=== PATIENT | male | born 1980 | race Caucasian/White ===

== ENCOUNTER → 2021-04-06 09:24 | Outpatient (CLI) | payer OTHER, SELFPAY ==
--- NOTE | 2021-04-06 09:26 | DI.MRI.S_ITS ---
PROCEDURE: MR LUMBAR SPINE WO CON INDICATIONS: Radiculopathy, lumbar region TECHNIQUE: Noncontrast sagittal T1 spin echo and T2 fast echo, sagittal STIR, axial T1 and T2 fast spin echo through the lumbar spine. In cases with scoliosis, additional coronal T2 fast spin echo may be performed. COMPARISON: None. FINDINGS: Image quality: Excellent. Alignment and Curvature: There is normal bony alignment. Bone Marrow: Reactive endplate changes noted adjacent to the L5-S1 disc. No acute vertebral body compression fractures. Spinal Cord: Conus medullaris terminates at the L1 level. Visualized cord demonstrates normal signal and size. Paraspinous Soft Tissues: No paravertebral masses. T12-L1: Normal appearance. L1-L2: Normal appearance. L2-L3: Normal appearance. L3-L4: Loss of disc signal. Mild, diffuse disc bulge. Small central disc protrusion. Mild bilateral facet hypertrophy. Mild narrowing of the central canal. No neural foraminal narrowing. No neural compression. Fissure noted in the posterior annulus. L4-L5: Loss of disc signal. Mild, diffuse disc bulge. Small central disc protrusion. Mild bilateral facet hypertrophy. Mild narrowing of the central canal. Mild bilateral neural foraminal narrowing. No neural compression. Fissure noted in the posterior annulus. L5-S1: Loss of disc signal and slight loss of disc height. Mild, diffuse disc bulge. Broad-based left central/left foraminal disc protrusion. Mild bilateral facet hypertrophy. No central stenosis. Mild right and moderate to severe left neural foraminal narrowing with slight compression of the exiting left L5 nerve root. IMPRESSION: 1. Multilevel degenerative disc disease. 2. Multilevel facet arthropathy. 3. No severe central canal narrowing. 4. Moderate to severe left L5-S1 neural foraminal narrowing with slight compression of the exiting left L5 nerve root. Please correlate with clinical data. Dictated by: Viri Pate MD, PhD on 04/06/2021 at 15:04 Approved by: Viri Pate MD, PhD on 04/06/2021 at 15:12
== END ==
PROVIDERS: PCP Student in an Organized Health Care Education/Training Program; Referring Provider Student in an Organized Health Care Education/Training Program; Visit Provider Student in an Organized Health Care Education/Training Program
DX: M51.16 Intervertebral disc disorders with radiculopathy, lumbar region (principal); M51.17 Intervertebral disc disorders with radiculopathy, lumbosacral region; M47.26 Other spondylosis with radiculopathy, lumbar region; M47.27 Other spondylosis with radiculopathy, lumbosacral region; M48.07 Spinal stenosis, lumbosacral region
CPT/HCPCS: 72148

== ENCOUNTER → 2021-06-15 08:22 | Outpatient (CLI) | payer OTHER, SELFPAY ==
[2021-06-15 15:09] LABS: COVID19 -Nasal RAPID Negative (Negative)
== END ==
PROVIDERS: PCP Student in an Organized Health Care Education/Training Program; Visit Provider Physical Medicine & Rehabilitation
DX: Z20.822 Contact with and (suspected) exposure to COVID-19 (principal)
CPT/HCPCS: 87635; C9803

== ENCOUNTER 2021-06-16 08:10 | Outpatient (CLI) | payer OTHER, SELFPAY ==
[2021-06-16] VITALS (8 sets, daily range): BP systolic 134–152; BP diastolic 79–95; PULSE 71–90; RESP 8–18; TEMP 36; O2SAT 96–99
--- NOTE | 2021-06-16 08:14 | DI.RAD.S_ITS ---
PROCEDURE: PAIN L INTERLAMINAR/CAUDAL INJ INDICATIONS: SPONDYLOSIS COMPARISON: [facility], MR, MR LUMBAR SPINE WO CON, 04/06/2021, 10:08. FINDINGS: Fluoroscopic spot filming was performed to verify placement of a spinal needle at the L5-S1 level, as labeled on the films. Appropriate location of the needle tip was confirmed by injection of iodinated contrast. IMPRESSION: No significant intraprocedural abnormality. Dictated by: Colby Wagner M.D. on 06/16/2021 at 9:21 Approved by: Colby Wagner M.D. on 06/16/2021 at 9:21
[2021-06-16] MEDS: fentaNYL 100 MCG/2 ML INJ 50 MCG IV (09:30)
[2021-06-16] MEDS: MIDAZOLAM 5 MG/5 ML VIAL IV (09:30)
[2021-06-16] MEDS: IOPAMIDOL 15 ML VIAL 3 ML INJ (09:34)
[2021-06-16] MEDS: BUPIVACAINE 0.25% (PF) VIAL 2 ML INJ (09:34)
[2021-06-16] MEDS: BETAMETHASONE 30 MG/5 ML MDV 12 MG INJ (09:34)
[2021-06-16] MEDS: DEXAMETHASONE 10 MG/ML VIAL 20 MG INJ (09:35)
--- NOTE | 2021-06-16 09:48 | PM.PROC.IR.1 ---
Date/Time/Diagnoses Date of procedure: 06/16/21 Time of procedure: 09:49 Pre-procedure diagnosis: 1. HNP WITH RADICULAR FEATURES, 2. MULTILEVEL CENTRAL STENOSIS, Post-procedure diagnosis: same Procedure Notes Procedure: 1. FLUOROSCOPICALLY GUIDED CONTRAST CONTROLLED INTERLAMINAR EPIDURAL STEROID INJECTION - L5/S1 Indications: Inder is referred by Dr. Starr for treatment of HNP with L>R LE symptoms. Physician: Jon Bustamante Total Fluoroscopy time (seconds): 8 Total sedation minutes: 10 Complications: none Procedure in detail & Post-procedure care: FINDINGS Multilevel Central Spinal Stenosis with Nerve Root Compression DESCRIPTION OF PROCEDURE Fluoroscopically guided, contrast-controlled L5/S1 translaminar epidural steroid injection. Following review of allergy and review of potential side effects and complications, including, but not necessarily limited to, infection, allergic reaction, local tissue breakdown, temporary as well as permanent nerve injury, paralysis, stroke and possible , the patient indicated that the patient understood and agreed to proceed. An informed consent document was signed by the patient, witnessed by a nurse, and placed in the patient's chart. Additionally, other treatment options including modalities, medications, and physical therapy were reviewed with the patient. After review of previous anaesthesic history and IV conscious sedation the patient was deemed safe to proceed with today?s procedure with IV conscious sedation as ASA class II designation. Safety time-out was performed to confirm patient ID, procedure to be performed and site of procedure. IV sedation was accomplished with a combination of 2mg of Versed and 50mcg of Fentanyl administered by the RN after DO order, titrated to patient comfort during the course of the procedure while the patient remained responsive to all verbal commands. In the prone position, following sterile prep and drape of the lumbar region, the L5/S1 translaminar space was identified fluoroscopically. The skin was anesthetized via a 25-gauge, 1.5-inch needle with 1% lidocaine solution. At this point, a 22-gauge short bevel spinal needle was atraumatically introduced and advanced under fluoroscopic guidance into the region of the L5/S1 translaminar space. Depth was confirmed on lateral view. Radiological data, including multiple fluoroscopic views of the lumbar spine, reveal a spinal needle at the L5/S1 translaminar space. Lateral views then show placement of the needle in the epidural space. Subsequent views show contrast material flowing superiorly and inferiorly in the epidural space. No vascular or intrathecal uptake is observed. At this point, using loss of resistance technique with saline and air, the epidural space was entered. This was confirmed following negative aspiration with injection of approximately 1.5cc of Isovue 200, showing excellent epidural flow without vascular or intrathecal uptake. At this point, 1cc of 1% lidocaine solution combined with 3cc or 20mg of dexamethasone and 12mg of betamethasone was injected without incident. The patent tolerated the procedure without signs of symptoms of complications prior to transfer to the recovery area for further monitoring. The patient was then transferred to the recovery area where they were observed for an appropriate period of time after the injection. The patient reported a VAS score of 6 prior to the procedure and a post-procedure VAS of 0. POST OP INSTRUCTIONS The patient was provided a Pain Log to continue to record their response to the target-specific procedure prior to follow-up visit with their referring physician. Additionally, specific post-injection care instructions and a contact number to our office were provided if concerns arise regarding possible complications associated with the procedure are suspected.
== END 2021-06-16 10:05 | disposition home or self-care (01) ==
LOC: RAD 08:13
PROVIDERS: PCP Student in an Organized Health Care Education/Training Program; Referring Provider Physical Medicine & Rehabilitation; Visit Provider Physical Medicine & Rehabilitation
DX: M51.17 Intervertebral disc disorders with radiculopathy, lumbosacral region (principal); M48.07 Spinal stenosis, lumbosacral region
CPT/HCPCS: 62323; 99152

== ENCOUNTER → 2021-10-26 13:37 | Outpatient (CLI) | payer OTHER, SELFPAY ==
[2021-10-26 15:02] LABS: COVID19 -Nasal RAPID Negative (Negative)
== END ==
PROVIDERS: PCP Student in an Organized Health Care Education/Training Program; Visit Provider Physical Medicine & Rehabilitation
DX: Z20.822 Contact with and (suspected) exposure to COVID-19 (principal)
CPT/HCPCS: 87635; C9803

== ENCOUNTER 2021-10-27 14:50 | Outpatient (CLI) | payer OTHER, SELFPAY ==
[2021-10-27] VITALS (8 sets, daily range): BP systolic 127–147; BP diastolic 66–90; PULSE 69–79; RESP 12–20; TEMP 36.3; O2SAT 95–100
--- NOTE | 2021-10-27 14:51 | DI.RAD.S_ITS ---
PROCEDURE: PAIN L/S FACET INJ/BLK 1ST CARLY COMPARISON: Merged With [facility], XA, PAIN L INTERLAMINAR/CAUDAL INJ, 06/16/2021, 9:35. INDICATIONS: SPONDYLOSIS FINDINGS: Fluoroscopic spot filming was performed to verify placement of spinal needles on both sides at the L3-L4 and L4-L5 levels, as labeled on the films. Appropriate location of the needle tips was confirmed by injection of iodinated contrast. IMPRESSION: Intraprocedural examination within normal limits. Dictated by: Colby Wagner M.D. on 10/27/2021 at 15:18 Approved by: Colby Wagner M.D. on 10/27/2021 at 15:18
[2021-10-27] MEDS: fentaNYL 100 MCG/2 ML INJ 50 MCG IV (15:25)
[2021-10-27] MEDS: LIDOCAINE 1% 20 ML (15:30)
[2021-10-27] MEDS: BUPIVACAINE 0.5% (PF) VIAL 5 ML INJ (15:30)
[2021-10-27] MEDS: IOPAMIDOL 15 ML VIAL 3 ML INJ (15:31)
[2021-10-27] MEDS: BETAMETHASONE 30 MG/5 ML MDV 12 MG INJ (15:31)
[2021-10-27] MEDS: MIDAZOLAM 5 MG/5 ML VIAL IV (15:32)
--- NOTE | 2021-10-27 15:44 | P.PCN_ITS ---
Date/Time/Diagnoses Date of procedure: 10/27/21 Time of procedure: 15:44 Pre-procedure diagnosis: 1. FACET ARTHROPATHY 2. AXIAL LBP 3. MULTILEVEL DDD This procedure is found to meet the Governor's proclamation 20-24.2 regarding non urgent procedures. This patient meets multiple criteria for the procedure including continuing or worsening of significant or severe pain, combined with further deterioration of the patient's condition or overall health as well as delay in treatment would be expected to result in less positive ultimate medical outcome. Therefore the decision to perform the procedure in an outpatient hospital setting is found to be in accordance with guidelines of the proclama tion. Post-procedure diagnosis: same Procedure Notes Procedure: 1. FLUORSCOPICALLY GUIDED CONTRAST CONTROLLED FACET JOINT INJECTIONS BILATERAL L3/4, L4/5 Indications: Inder is referred by Dr. Starr for treatment of Axial LBP Physician: Jon Bustamante Total Fluoroscopy time (seconds): 11 Total sedation minutes: 14 Complications: none Procedure in detail & Post-procedure care: FINDINGS Multilevel Facet Arthropathy with Clinically significant axial LBP DESCRIPTION OF PROCEDURE Fluoroscopically guided, contrast-controlled bilateral L3/4, L4/5 facet joint injections. Following review of allergy and review of potential side effects and complications, including, but not necessarily limited to, infection, allergic reaction, local tissue breakdown, stroke, temporary or permanent nerve injury, paralysis, and possible , the patient indicated that the patient understood and agreed to proceed. An informed consent document was signed by the patient, witnessed by a nurse, and placed in the patient's chart. Additionally, other treatment options including medications, modalities, and physical therapy were reviewed with the patient. After review of previous anaesthesic history and IV conscious sedation the patient was deemed safe to proceed with today's procedure with IV conscious sedation as ASA class II designation. Safety time-out was performed to confirm patient ID, procedure to be performed and site of procedure. IV sedation was accomplished with a combination of 3mg of Versed and 50mcg of Fentanyl was administered by the RN after DO order, titrated to patient comfort during the course of the procedure while the patient remained responsive to all verbal commands. In the prone position, following sterile prep and drape of the lumbar region, the posterior aspect of the L3/4, L4/5 facet joints were identified fluoroscopically. The skin was anesthetized via a 25-gauge 1.5-inch needle with 1% lidocaine solution into the corresponding facet joints. At this point, a 22- gauge 3.5-inch spinal needle was atraumatically introduced and advanced under fl uoroscopic guidance into the corresponding facet joints. Following negative aspiration, injections of approximately 0.2cc of Isovue 200 confirmed interarticular placement without vascular uptake. The identical procedure was then performed at the L3/4, L4/5 facet joints on the left. Radiological data, including multiple fluoroscopic views of the lumbosacral spine, reveal a spinal needle at the L3/4, L4/5 facet joints bilaterally. Subsequent views show flow of contrast material both superiorly and inferiorly within the joint space without vascular or intrathecal uptake. At this point, a total of 0.5cc including a mixture of 0.25cc Marcaine and 0.25cc betamethasone was injected without complication into each of the corresponding facet joints. The patient tolerated the procedure well without signs or symptoms of complications prior to transfer to the recovery area continued monitoring without incident. The patient was then transferred to the recovery area where they were observed for an appropriate period of time after the injection. The patient reported a VAS score of 7 prior to the procedure and a post-procedure VAS of 0. POST OP INSTRUCTIONS The patient was provided a Pain Log to continue to record their response to the target-specific procedure prior to follow-up visit with their referring physician. Additionally, specific post-injection care instructions and a contact number to our office were provided if concerns arise regarding possible complications associated with the procedure are suspected.
== END 2021-10-27 16:06 | disposition home or self-care (01) ==
PROVIDERS: PCP Student in an Organized Health Care Education/Training Program; Referring Provider Physical Medicine & Rehabilitation; Visit Provider Physical Medicine & Rehabilitation
DX: M47.816 Spondylosis without myelopathy or radiculopathy, lumbar region (principal); M51.36 Other intervertebral disc degeneration, lumbar region
CPT/HCPCS: 64493; 64494; 99152; J0702; J2250; J3010

== ENCOUNTER 2021-11-15 13:45 | Emergency (ER) | payer OTHER, SELFPAY ==
[2021-11-15 13:58] VITALS: BP 149/78; PULSE 69; RESP 18; TEMP 36.7; O2SAT 97; BMI 29.5
--- NOTE | 2021-11-15 14:05 | DI.RAD.S_ITS ---
P a ROCEDURE: XR RIBS RT MIN 3V W CXR 1V INDICATIONS: right side/rib pain, no known injury TECHNIQUE: 2 views of the right ribs were acquired, along with a single view chest. COMPARISON: None. FINDINGS: Surgical changes and devices: Postsurgical changes from prior cervical disc replacement surgery of the lower cervical spine. Bones and chest wall: No acute rib fractures or dislocations. Of note, images are slightly degraded by motion artifact. No suspicious bony lesions. Overlying soft tissues appear unremarkable. Lungs and pleura: No pleural effusions or pneumothorax. Lungs appear clear. Mediastinum: Mediastinal contours appear normal. Heart size is normal. IMPRESSION: Chest without acute cardiopulmonary abnormalities or focal airspace disease. No acute rib fractures identified. Dictated by: Aleksandr Xiao M.D. on 11/15/2021 at 13:30 Approved by: Aleksandr Xiao M.D. on 11/15/2021 at 13:31
[2021-11-15 14:46] LABS: Add Manual Diff / Slide Review NO; Basophils Absolute Auto 0 /uL (0-100); Basophils Percent Auto 0.4 % (0-2); Eosinophils Absolute Auto 100 /uL (0-450); Eosinophils Percent Auto 0.7 % (2-4); Hematocrit 43.5 % (41-53); Hemoglobin 14.8 g/dL (13.5-17.5); Lymphocytes Absolute Auto 2400 /uL (1100-4500); Lymphocytes Percent Auto 28.5 % (25-40); Mean Corpuscular HGB Conc 34.1 % (30-36); Mean Corpuscular Volume 87.9 fL (80-100); Monocytes Absolute Auto 800 /uL (0-900); Monocytes Percent Auto 9.4 % (3-14); Neutrophils Absolute Auto 5200 /uL (1500-7000); Platelet Count 250 X10^3/uL (150-400); Red Blood Cell Count 4.94 X10^6/uL (4.5-5.9); Red Cell Distribution Width 12.8 % (11.6-14.8); White Blood Cell Count 8.6 X10^3/uL (4.5-11.0)
[2021-11-15 15:03] LABS: Alanine Aminotransferase 46 IU/L (<50); Albumin Globulin Ratio 1.5 (1.0-2.8); Alkaline Phosphatase 56 U/L (38-126); Aspartate Aminotransferase 43 IU/L (17-59); BUN Creatinine Ratio 14.3 (6-22); Bilirubin Total 0.7 mg/dL (0.2-1.3); Blood Urea Nitrogen 15 mg/dL (9-20); Calcium 9.7 mg/dL (8.4-10.2); Carbon Dioxide 26 mmol/L (22-32); Chloride 103 mmol/L (98-107); Estimated Glomerular Filt Rate > 60.0 mL/min (>60); Globulin 3.3 g/dL (1.7-4.1); Glucose 103 mg/dL (70-100); HEMOLYSIS < 15 (0-50); Lipase 105 U/L (23-300); Potassium 3.9 mmol/L (3.4-5.1); Sodium 137 mmol/L (137-145); Total Protein 8.3 g/dL (6.3-8.2)
--- NOTE | 2021-11-15 15:12 | DI.US.S_ITS ---
PROCEDURE: US ABDOMEN LIMITED INDICATIONS: RUQ PAIN TECHNIQUE: Real-time scanning was performed of the abdominal and retroperitoneal organs, with image documentation. COMPARISON: None. FINDINGS: Liver: The liver demonstrates diffusely increased echotexture without focal abnormalities consistent with chronic hepatocellular disease/hepatic steatosis. Gallbladder: Gallbladder is normal in sonographic appearance without gallstones, gallbladder wall thickening, pericholecystic fluid, or abnormal sonographic Ramires's. Biliary ducts: Intrahepatic bile ducts are non-dilated. Extrahepatic bile duct caliber measures 4.5 mm. Normal is 6-7 mm or less in diameter, or 10 mm or less post-cholecystectomy. Pancreas: Visualized portions of the pancreas are sonographically normal. Miscellaneous: No free abdominal fluid. IMPRESSION: The liver demonstrates diffusely increased echotexture without focal abnormalities consistent with chronic hepatocellular disease/hepatic steatosis. Consider correlation with LFTs. No evidence for cholelithiasis or acute cholecystitis. Dictated by: Aleksandr Xiao M.D. on 11/15/2021 at 15:59 Approved by: Aleksandr Xiao M.D. on 11/15/2021 at 16:01
--- NOTE | 2021-11-15 15:40 | ED.CHESTPAIN ---
HPI - Chest Pain <Bret Allen PA-C - Last Filed: 11/15/21 19:39> General Chief Complaint: Chest Pain Stated Complaint: rt pain under ribs Time Seen by Provider: 11/15/21 14:24 Mode of arrival: Ambulatory History of Present Illness HPI narrative: Patient is a 41-year-old male presenting to the emergency department today for right-sided pain below the ribs. Patient states that he is experience this pain intermittently over the past week and a half, noting that he has not experienced any trauma or injury to the area. He states that he began taking Celebrex approximately a month ago but denies any new medications or changes in medications. He states he is not experience any other associated symptoms and states that his pain can range anywhere from a 3/10 in intensity to a 9/10 in intensity. He states that the pain lasts for a few seconds and can go quite some time without experiencing additional episodes of pain. He denies fever, chills, chest pain, cough, shortness of breath, nausea, vomiting, diarrhea, dysuria, hematuria, diaphoresis, chest pain radiating to the back, or any other concerning symptoms. No further concerns were voiced at this time. Related Data Home Medications Medication Instructions Recorded Confirmed ibuprofen 200 mg tablet (Advil) 200 mg PO Q6H PRN 09/30/21 09/30/21 lisinopril 40 mg tablet 40 mg PO DAILY 09/30/21 09/30/21 Previous Rx's Medication Instructions Recorded celecoxib 200 mg capsule (Celebrex) 200 mg PO DAILY #30 cap 09/30/21 diazepam 10 mg tablet (Valium) 10 mg PO ONCE #10 tab MDD 3 tabs 10/27/21 Allergies Allergy/AdvReac Type Severity Reaction Status Date / Time No Known Drug Allergies Allergy Verified 09/30/21 11:37 Review of Systems <Bret Allen PA-C - Last Filed: 11/15/21 19:39> Constitutional Constitutional: Denies chills, Denies fatigue, Denies fever(s), Denies frequent falls, Denies lethargy and Denies weakness Eyes Eyes: Denies loss of vision ENT Ears, Nose, Mouth, and Throat: Denies dizziness and Denies neck pain Cardiovascular Cardiovascular: Denies chest pain, Denies irregular heart rhythm, Denies lightheadedness, Denies palpitations, Denies dyspnea, Denies dyspnea on exertion and Denies orthopnea Respiratory Respiratory: Denies cough, Denies dyspnea, Denies dyspnea on exertion and Denies wheezing Gastrointestinal Gastrointestinal: Denies abdominal pain, Denies change in bowel habits, Denies diarrhea, Denies nausea and Denies vomiting Genitourinary Genitourinary: Denies hematuria, Denies flank pain, Denies urinary incontinence and Denies urinary urgency Musculoskeletal Musculoskeletal: Denies back pain, Denies muscle weakness, Denies neck pain, Denies numbness, Denies tingling and Reports other (Right-sided pain below the ribs) Integumentary/Breasts Skin/Breast: Denies pruritus, Denies erythema, Denies rash and Denies wounds Neurologic Neurologic: Denies behavioral changes, Denies confusion, Denies dizziness, Denies frequent falls, Denies loss of vision, Denies numbness, Denies tingling and Denies weakness Psychiatric Psychiatric: Denies behavioral changes and Denies confusion Endocrine Endocrine: Denies fatigue and Denies palpitations Allergic/Immunologic Allergic/Immunologic: Denies wheezing Patient History <Bret Allen PA-C - Last Filed: 11/15/21 19:39> Medical History Facet arthropathy, lumbar Herniated nucleus pulposus, L5-S1, left Social History Smoking Status: Never smoker Smoking Status: Never smoker alcohol intake frequency: a few times a month Substance Use Type: does not use Exam <Bret Allen PA-C - Last Filed: 11/15/21 19:39> Narrative Exam Narrative: GENERAL: 41 year old patient appears stated age. Well-developed patient, in no acute distress. HEAD: Atraumatic. Normocephalic. EYES: Pupils equal round and reactive. Extraocular motions intact. No scleral icterus. No injection or drainage. ENT: Nose without bleeding, purulent drainage. Throat without erythema, tonsillar hypertrophy or exudate. Airway patent. NECK: Trachea midline. Non tender CARDIOVASCULAR: Regular rate and rhythm without murmurs, gallops, or rubs. RESPIRATORY: Clear to auscultation. Breath sounds equal bilaterally. No wheezes, rales, or rhonchi. GASTROINTESTINAL: Abdomen soft, non-tender, nondistended. No masses appreciated. Positive Ramires sign. EXTREMITIES: No edema or joint tenderness. No significant tenderness appreciated throughout the ribcage on the right side. No deformity or crepitance appreciated over the ribcage. No significant overlying ecchymosis BACK: Nontender without deformity or crepitance. No flank tenderness. NEURO: AOx3. SKIN: No rash or erythema of visible areas Initial Vital Signs Initial Vital Signs: Vital Signs Temperature 98.1 F 11/15/21 13:58 Pulse Rate 69 11/15/21 13:58 Respiratory Rate 18 11/15/21 13:58 Blood Pressure 149/78 H 11/15/21 13:58 Pulse Oximetry 97 11/15/21 13:58 <Shahana Ortiz DO - Last Filed: 11/16/21 07:38> Initial Vital Signs Initial Vital Signs: Vital Signs Temperature 98.1 F 11/15/21 13:58 Pulse Rate 69 11/15/21 13:58 Respiratory Rate 18 11/15/21 13:58 Blood Pressure 149/78 H 11/15/21 13:58 Pulse Oximetry 97 11/15/21 13:58 Course <Bret Allen PA-C - Last Filed: 11/15/21 19:39> Course Course Narrative: CBC, CMP, lipase, troponin, and abdominal ultrasound ordered. Ultrasound of the right upper quadrant ordered due to positive Ramires sign on exam. Orders Ordered: ED Orders 11/15/21 14:05 XR ribs RT min 3V w CXR1V Stat 11/15/21 14:32 Complete Blood Count AUTO DIFF Stat Comprehensive Metabolic Panel Stat Lipase Stat Troponin & CK Cardiac Panel Stat 11/15/21 15:12 US abdomen limited Stat Vital Signs Vital signs: Vital Signs - 8 hr 11/15/21 13:58 11/15/21 17:46 Temperature 98.1 F 97.7 F Pulse Rate 69 63 Respiratory Rate 18 14 Blood Pressure 149/78 H 126/64 Pulse Oximetry 97 97 <Shahana Ortiz DO - Last Filed: 11/16/21 07:38> Orders Ordered: ED Orders 11/15/21 14:05 XR ribs RT min 3V w CXR1V Stat 11/15/21 14:32 Complete Blood Count AUTO DIFF Stat Comprehensive Metabolic Panel Stat Lipase Stat Troponin & CK Cardiac Panel Stat 11/15/21 15:12 US abdomen limited Stat Vital Signs Vital signs: Vital Signs - 8 hr 11/15/21 13:58 11/15/21 17:46 Temperature 98.1 F 97.7 F Pulse Rate 69 63 Respiratory Rate 18 14 Blood Pressure 149/78 H 126/64 Pulse Oximetry 97 97 MDM - Chest Pain <Bret Allen PA-C - Last Filed: 11/15/21 19:39> Lab Data Result diagrams: 11/15/21 14:32 11/15/21 14:32 Labs: Lab Results 11/15/21 11/15/21 11/15/21 Range/Units 14:32 14:32 14:32 WBC 8.6 (4.5-11.0) X10^3/uL RBC 4.94 (4.5-5.9) X10^6/uL Hgb 14.8 (13.5-17.5) g/dL Hct 43.5 (41-53) % MCV 87.9 (80-100) fL MCH 30.0 (26-34) PG MCHC 34.1 (30-36) % RDW 12.8 (11.6-14.8) % Plt Count 250 (150-400) X10^3/uL Neut % (Auto) 61.0 (50-75) % Lymph % (Auto) 28.5 (25-40) % Forest % (Auto) 9.4 (3-14) % Eos % (Auto) 0.7 L (2-4) % Baso % (Auto) 0.4 (0-2) % Neut # (Auto) 5200 (3485-8617) /uL Lymph # (Auto) 2400 (8699-3532) /uL Forest # (Auto) 800 (0-900) /uL Eos # (Auto) 100 (0-450) /uL Baso # (Auto) 0 (0-100) /uL Sodium 137 (137-145) mmol/L Potassium 3.9 (3.4-5.1) mmol/L Chloride 103 (98-107) mmol/L Carbon Dioxide 26 (22-32) mmol/L BUN 15 (9-20) mg/dL Creatinine 1.05 (0.66-1.25) mg/dL Estimated GFR > 60.0 (>60) mL/min BUN/Creatinine Ratio 14.3 (6-22) Glucose 103 H (70-100) mg/dL Calcium 9.7 (8.4-10.2) mg/dL Total Bilirubin 0.7 (0.2-1.3) mg/dL AST 43 (17-59) IU/L ALT 46 (<50) IU/L Alkaline Phosphatase 56 (38-126) U/L Total Creatine Kinase (55-170) U/L CK-MB (CK-2) (<2.37) ng/mL CK-MB (CK-2) Rel Index (1.5-5.0) % Troponin I (0.01-0.034) ng/mL Total Protein 8.3 H (6.3-8.2) g/dL Albumin 5.0 (3.5-5.0) g/dL Globulin 3.3 (1.7-4.1) g/dL Albumin/Globulin Ratio 1.5 (1.0-2.8) Lipase 105 (23-300) U/L 11/15/21 Range/Units 14:32 WBC (4.5-11.0) X10^3/uL RBC (4.5-5.9) X10^6/uL Hgb (13.5-17.5) g/dL Hct (41-53) % MCV (80-100) fL MCH (26-34) PG MCHC (30-36) % RDW (11.6-14.8) % Plt Count (150-400) X10^3/uL Neut % (Auto) (50-75) % Lymph % (Auto) (25-40) % Forest % (Auto) (3-14) % Eos % (Auto) (2-4) % Baso % (Auto) (0-2) % Neut # (Auto) (8406-1919) /uL Lymph # (Auto) (0171-3741) /uL Forest # (Auto) (0-900) /uL Eos # (Auto) (0-450) /uL Baso # (Auto) (0-100) /uL Sodium (137-145) mmol/L Potassium (3.4-5.1) mmol/L Chloride (98-107) mmol/L Carbon Dioxide (22-32) mmol/L BUN (9-20) mg/dL Creatinine (0.66-1.25) mg/dL Estimated GFR (>60) mL/min BUN/Creatinine Ratio (6-22) Glucose (70-100) mg/dL Calcium (8.4-10.2) mg/dL Total Bilirubin (0.2-1.3) mg/dL AST (17-59) IU/L ALT (<50) IU/L Alkaline Phosphatase (38-126) U/L Total Creatine Kinase 372 H (55-170) U/L CK-MB (CK-2) 2.55 H (<2.37) ng/mL CK-MB (CK-2) Rel Index 0.7 L (1.5-5.0) % Troponin I < 0.012 (0.01-0.034) ng/mL Total Protein (6.3-8.2) g/dL Albumin (3.5-5.0) g/dL Globulin (1.7-4.1) g/dL Albumin/Globulin Ratio (1.0-2.8) Lipase (23-300) U/L Imaging Data X-ray Ribs: Radiologist's Impression: P a ROCEDURE:? XR RIBS RT MIN 3V W CXR 1V ? INDICATIONS:? right side/rib pain, no known injury ? TECHNIQUE:? 2 views of the right ribs were acquired, along with a single view chest.? ? COMPARISON:? None. ? FINDINGS:? ? Surgical changes and devices:? Postsurgical changes from prior cervical disc replacement surgery of the lower cervical spine.? ? Bones and chest wall:? No acute rib fractures or dislocations.? Of note, images are slightly degraded by motion artifact.? No suspicious bony lesions.? Overlying soft tissues appear unremarkable.? ? Lungs and pleura:? No pleural effusions or pneumothorax.? Lungs appear clear.? ? Mediastinum:? Mediastinal contours appear normal.? Heart size is normal.? ? IMPRESSION:? Chest without acute cardiopulmonary abnormalities or focal airspace disease. ?No acute rib fractures identified. ? ? Dictated by: Aleksandr Xiao M.D. on 11/15/2021 at 13:30 ? ? Approved by: Aleksandr Xiao M.D. on 11/15/2021 at 13:31? US - abdomen: Radiologist's Impression: PROCEDURE:? US ABDOMEN LIMITED ? INDICATIONS:? RUQ PAIN ? TECHNIQUE:? Real-time scanning was performed of the abdominal and retroperitoneal organs, with image documentation.? ? COMPARISON:? None. ? FINDINGS:? ? Liver:? The liver demonstrates diffusely increased echotexture without focal abnormalities consistent with chronic hepatocellular disease/hepatic steatosis. Gallbladder:? Gallbladder is normal in sonographic appearance without gallstones, gallbladder wall thickening, pericholecystic fluid, or abnormal sonographic Ramires's.? Biliary ducts:? Intrahepatic bile ducts are non-dilated.? Extrahepatic bile duct caliber measures 4.5 mm.? Normal is 6-7 mm or less in diameter, or 10 mm or less post-cholecystectomy.? Pancreas:? Visualized portions of the pancreas are sonographically normal.? Miscellaneous:? No free abdominal fluid.? ? IMPRESSION:? The liver demonstrates diffusely increased echotexture without focal abnormalities consistent with chronic hepatocellular disease/hepatic steatosis. Consider correlation with LFTs. No evidence for cholelithiasis or acute cholecystitis. ? ? Dictated by: Aleksandr Xiao M.D. on 11/15/2021 at 15:59 ? ? Approved by: Aleksandr Xiao M.D. on 11/15/2021 at 16:01 ? MDM Narrative Medical decision making narrative: Differential diagnosis to consider but not limited to cholecystitis versus coli lithiasis versus choledocholithiasis versus acute cholangitis versus hepatitis versus rib fracture versus rib dislocation. Overall, physical examination, x-ray imaging, and ultrasound imaging obtained in the emergency department today were reassuring. No acute abnormality was identified on x-ray or ultrasound that would require emergent intervention. Additionally, lab studies obtained in the emergency department today returned overall reassuring and within normal limits. Discussed these results with patient and informed him that it is important to follow-up with his primary care provider within the next 2-3 days for further evaluation. Patient expresses understanding and agrees to plan. He states at this time he is comfortable being discharged home and is stable for discharge. Strict return precautions were discussed with the patient prior to discharge. Patient denied chest pain, nausea, diaphoresis, jaw pain, pain or numbness in the upper extremities, or any other concerning symptoms prior to coming to the emergency department or throughout his stay in the emergency department. <Shahana Ortiz, - Last Filed: 11/16/21 07:38> Lab Data Labs: Lab Results 11/15/21 11/15/21 11/15/21 Range/Units 14:32 14:32 14:32 WBC 8.6 (4.5-11.0) X10^3/uL RBC 4.94 (4.5-5.9) X10^6/uL Hgb 14.8 (13.5-17.5) g/dL Hct 43.5 (41-53) % MCV 87.9 (80-100) fL MCH 30.0 (26-34) PG MCHC 34.1 (30-36) % RDW 12.8 (11.6-14.8) % Plt Count 250 (150-400) X10^3/uL Neut % (Auto) 61.0 (50-75) % Lymph % (Auto) 28.5 (25-40) % Forest % (Auto) 9.4 (3-14) % Eos % (Auto) 0.7 L (2-4) % Baso % (Auto) 0.4 (0-2) % Neut # (Auto) 5200 (2499-2299) /uL Lymph # (Auto) 2400 (8022-1924) /uL Forest # (Auto) 800 (0-900) /uL Eos # (Auto) 100 (0-450) /uL Baso # (Auto) 0 (0-100) /uL Sodium 137 (137-145) mmol/L Potassium 3.9 (3.4-5.1) mmol/L Chloride 103 (98-107) mmol/L Carbon Dioxide 26 (22-32) mmol/L BUN 15 (9-20) mg/dL Creatinine 1.05 (0.66-1.25) mg/dL Estimated GFR > 60.0 (>60) mL/min BUN/Creatinine Ratio 14.3 (6-22) Glucose 103 H (70-100) mg/dL Calcium 9.7 (8.4-10.2) mg/dL Total Bilirubin 0.7 (0.2-1.3) mg/dL AST 43 (17-59) IU/L ALT 46 (<50) IU/L Alkaline Phosphatase 56 (38-126) U/L Total Creatine Kinase (55-170) U/L CK-MB (CK-2) (<2.37) ng/mL CK-MB (CK-2) Rel Index (1.5-5.0) % Troponin I (0.01-0.034) ng/mL Total Protein 8.3 H (6.3-8.2) g/dL Albumin 5.0 (3.5-5.0) g/dL Globulin 3.3 (1.7-4.1) g/dL Albumin/Globulin Ratio 1.5 (1.0-2.8) Lipase 105 (23-300) U/L 11/15/21 Range/Units 14:32 WBC (4.5-11.0) X10^3/uL RBC (4.5-5.9) X10^6/uL Hgb (13.5-17.5) g/dL Hct (41-53) % MCV (80-100) fL MCH (26-34) PG MCHC (30-36) % RDW (11.6-14.8) % Plt Count (150-400) X10^3/uL Neut % (Auto) (50-75) % Lymph % (Auto) (25-40) % Forest % (Auto) (3-14) % Eos % (Auto) (2-4) % Baso % (Auto) (0-2) % Neut # (Auto) (9001-7373) /uL Lymph # (Auto) (3360-1072) /uL Forest # (Auto) (0-900) /uL Eos # (Auto) (0-450) /uL Baso # (Auto) (0-100) /uL Sodium (137-145) mmol/L Potassium (3.4-5.1) mmol/L Chloride (98-107) mmol/L Carbon Dioxide (22-32) mmol/L BUN (9-20) mg/dL Creatinine (0.66-1.25) mg/dL Estimated GFR (>60) mL/min BUN/Creatinine Ratio (6-22) Glucose (70-100) mg/dL Calcium (8.4-10.2) mg/dL Total Bilirubin (0.2-1.3) mg/dL AST (17-59) IU/L ALT (<50) IU/L Alkaline Phosphatase (38-126) U/L Total Creatine Kinase 372 H (55-170) U/L CK-MB (CK-2) 2.55 H (<2.37) ng/mL CK-MB (CK-2) Rel Index 0.7 L (1.5-5.0) % Troponin I < 0.012 (0.01-0.034) ng/mL Total Protein (6.3-8.2) g/dL Albumin (3.5-5.0) g/dL Globulin (1.7-4.1) g/dL Albumin/Globulin Ratio (1.0-2.8) Lipase (23-300) U/L Discharge Plan Departure Patient Disposition: Home Clinical Impression: Rib pain on right side Activity Restrictions/Additional Instructions: *You have been diagnosed with right-sided rib pain *What to do: *Please continue to take your regular medications as directed. [ ] New medication prescriptions sent to your pharmacy: [ ] [ ] New medication written as a paper prescription [X] No new medications given You were evaluated in the emergency department today for intermittent right-sided abdominal/rib pain. X-ray imaging and ultrasound imaging obtained in the emergency department today did not show signs of acute abnormality. Ultrasound imaging digit was signs of diffuse enlargement of the liver, however your liver functioning tests on lab studies obtained today were well within normal limits. I encourage you to follow-up with the primary care provider within the next 2-3 days for further evaluation. Please do not hesitate to return to the emergency department if you experience worsening pain, intractable vomiting, fever, or any other concerning symptoms. *Please follow up with your primary care provider in 2-3 days, call for an appointment. Let them know you were seen in the Emergency Department and that we ask that you be seen in follow up. We will electronically transmit a record of today's note if your PCP is in our system *If you do not have a primary care provider please contact the [facility] Resource line at [phone]. They will ask some questions about your medical history and help get you set up with a doctor in the community. *Return to Emergency Department if you should have any new, worsening or concerning symptoms, such as fever greater than 101 F, shaking chills, worsening pain, persistent vomiting or other bothersome symptoms. Prescriptions: No Action celecoxib [Celebrex] 200 mg capsule 200 mg PO DAILY Qty: 30 2RF diazepam [Valium] 10 mg tablet 10 mg PO ONCE MDD 3 tabs Qty: 10 0RF ibuprofen [Advil] 200 mg tablet 200 mg PO Q6H PRN0RF Hold Instructions: Home Medication placed on hold at Doctor's office lisinopril 40 mg tablet 40 mg PO DAILY 0RF Referrals: Naga Starr [Primary Care Provider] - <Shahana Ortiz DO - Last Filed: 11/16/21 07:38> Cosign ED Attending Morisature Attestation: I was immediately available in the department for consultation. Documentation has been reviewed.
[2021-11-15 17:43] LABS: Creatine Kinase 372 U/L (55-170)
[2021-11-15 17:46] VITALS: BP 126/64; PULSE 63; RESP 14; TEMP 36.5; O2SAT 97
[2021-11-15 17:56] LABS: Troponin I < 0.012 ng/mL (0.01-0.034)
[2021-11-15 17:58] LABS: CKMB % Relative Index 0.7 % (1.5-5.0); Creatine Kinase MB 2.55 ng/mL (<2.37)
== END 2021-11-15 17:47 | disposition home or self-care (01) ==
PROVIDERS: Emergency Provider Physician Assistant; PCP Student in an Organized Health Care Education/Training Program
DX: R07.81 Pleurodynia (principal)
CPT/HCPCS: 71101; 76705; 80053; 82550; 82553; 83690; 84484; 85025; 99283

== ENCOUNTER 2021-11-23 14:39 | Emergency (ER) | payer OTHER, SELFPAY ==
[2021-11-23 14:51] VITALS: BP 146/77; PULSE 83; RESP 16; TEMP 36.6; O2SAT 97; BMI 29.5
[2021-11-23 16:05] LABS: Appearance Urine UA CLEAR; Bilirubin Urine UA NEGATIVE (NEGATIVE); Color Urine UA YELLOW; Glucose Urine UA NEGATIVE (Negative); Ketones Urine UA NEGATIVE (NEGATIVE); Leukocyte Esterase Urine UA NEGATIVE (NEGATIVE); Nitrite Urine UA NEGATIVE (Negative); Occult Blood Urine UA NEGATIVE (Negative); Protein Urine UA NEGATIVE (Negative); Urobilinogen Urine UA 0.2 E.U./dL (0.2)
[2021-11-23 16:10] LABS: Bacteria Urine None Seen; Culture Indicated Urine Cult Not Indicated; RBC Urine None Seen (0-5/HPF); Squamous Epithelial Cell Urine 0-1 /HPF (0-5/HPF); WBC Urine 0-1/HPF (0-5/HPF)
--- NOTE | 2021-11-23 18:27 | DI.CT.S_ITS ---
PROCEDURE: CT KIDNEY URETER BLADDER (KUB) INDICATIONS: R flank pain eval for stone TECHNIQUE: Axial sections were acquired from the lung bases to the pubic symphysis. Coronal and sagittal reformats were performed. For radiation dose reduction, the following was used: automated exposure control, adjustment of mA and/or kV according to patient size. COMPARISON: None. FINDINGS: Unenhanced kidneys are unremarkable. No renal calculus, hydroureter, hydronephrosis, or perinephric fat stranding. Urinary bladder is unremarkable. Included portions of the lung bases are clear. Enteric tract is normal with no evidence of obstruction or other acute enteric process. Unenhanced solid abdominal visceral structures are within normal limits. No lymphadenopathy in the abdomen or pelvis. No acute osseous abnormality. IMPRESSION: Normal study. Dictated by: Angel Alonso M.D. on 11/23/2021 at 18:49 Approved by: Angel Alonso M.D. on 11/23/2021 at 18:51
[2021-11-23 19:18] LABS: Add Manual Diff / Slide Review NO; Basophils Absolute Auto 100 /uL (0-100); Basophils Percent Auto 0.7 % (0-2); Eosinophils Absolute Auto 100 /uL (0-450); Hematocrit 43.9 % (41-53); Hemoglobin 15.1 g/dL (13.5-17.5); Lymphocytes Absolute Auto 2300 /uL (1100-4500); Mean Corpuscular HGB Conc 34.4 % (30-36); Mean Corpuscular Hemoglobin 30.2 PG (26-34); Mean Corpuscular Volume 87.9 fL (80-100); Monocytes Absolute Auto 600 /uL (0-900); Monocytes Percent Auto 8.8 % (3-14); Neutrophils Absolute Auto 3700 /uL (1500-7000); Neutrophils Percent Auto 54.5 % (50-75); Platelet Count 256 X10^3/uL (150-400); Red Cell Distribution Width 13.1 % (11.6-14.8); White Blood Cell Count 6.8 X10^3/uL (4.5-11.0)
[2021-11-23 19:38] LABS: Alanine Aminotransferase 46 IU/L (<50); Albumin 4.9 g/dL (3.5-5.0); Albumin Globulin Ratio 1.4 (1.0-2.8); Alkaline Phosphatase 58 U/L (38-126); Aspartate Aminotransferase 41 IU/L (17-59); BUN Creatinine Ratio 16.7 (6-22); Bilirubin Total 0.6 mg/dL (0.2-1.3); Blood Urea Nitrogen 19 mg/dL (9-20); Calcium 9.6 mg/dL (8.4-10.2); Carbon Dioxide 29 mmol/L (22-32); Chloride 102 mmol/L (98-107); Estimated Glomerular Filt Rate > 60.0 mL/min (>60); Globulin 3.6 g/dL (1.7-4.1); Glucose 102 mg/dL (70-100); HEMOLYSIS 26 (0-50); Lipase 95 U/L (23-300); Potassium 4.6 mmol/L (3.4-5.1); Sodium 137 mmol/L (137-145); Total Protein 8.5 g/dL (6.3-8.2)
--- NOTE | 2021-11-23 20:07 | ED_ITS ---
HPI - General Adult <Reji Lara PA-C - Last Filed: 11/23/21 20:13> General Chief complaint: Urogenital-Male Stated complaint: Right flank pain x 3 weeks Time Seen by Provider: 11/23/21 18:27 History of Present Illness HPI narrative: 41-year-old male with past medical history herniated disc in L5-S1 presents to the ED with bilateral lower rib pain. Patient states that the pain radiates towards his lower back. Patient denies trauma. Patient denies fever, chills, chest pain, shortness of breath, cough, nausea, vomiting, flank pain, dysuria, lightheadedness, dizziness, syncope. Patient was seen in this ED on November 15 for the same symptoms. Labs and ultrasound, rib x-rays were normal. Related Data Home Medications Medication Instructions Recorded Confirmed ibuprofen 200 mg tablet (Advil) 200 mg PO Q6H PRN 09/30/21 09/30/21 lisinopril 40 mg tablet 40 mg PO DAILY 09/30/21 09/30/21 Previous Rx's Medication Instructions Recorded celecoxib 200 mg capsule (Celebrex) 200 mg PO DAILY #30 cap 09/30/21 diazepam 10 mg tablet (Valium) 10 mg PO ONCE #10 tab MDD 3 tabs 10/27/21 Allergies Allergy/AdvReac Type Severity Reaction Status Date / Time No Known Drug Allergies Allergy Verified 09/30/21 11:37 Review of Systems <Reji Lara PA-C - Last Filed: 11/23/21 20:13> Review of Systems ROS Unobtainable: All systems reviewed & are unremarkable except as noted in HPI and below Constitutional Constitutional: Denies chills, Denies fatigue, Denies fever(s), Denies frequent falls, Denies lethargy and Denies weakness Eyes Eyes: Denies change in vision, Denies eye discharge, Denies irritation and Denies loss of vision ENT Ears, Nose, Mouth, and Throat: Denies change in voice, Denies dizziness, Denies neck pain, Denies sore throat and Denies throat swelling Cardiovascular Cardiovascular: Denies chest pain, Denies irregular heart rhythm, Denies lightheadedness, Denies palpitations, Denies dyspnea, Denies dyspnea on exertion and Denies orthopnea Respiratory Respiratory: Denies cough, Denies dyspnea, Denies dyspnea on exertion and Denies wheezing Gastrointestinal Gastrointestinal: Denies abdominal pain, Denies change in bowel habits, Denies diarrhea, Denies nausea and Denies vomiting Genitourinary Genitourinary: Denies hematuria, Denies flank pain, Denies urinary incontinence and Denies urinary urgency Musculoskeletal Musculoskeletal: Denies back pain, Denies muscle weakness, Denies neck pain, Denies numbness and Denies tingling Comments: Bilateral, lateral rib pain, lower back pain Integumentary/Breasts Skin/Breast: Denies pruritus, Denies erythema, Denies rash and Denies wounds Neurologic Neurologic: Denies behavioral changes, Denies confusion, Denies dizziness, Denies frequent falls, Denies loss of vision, Denies numbness, Denies tingling and Denies weakness Psychiatric Psychiatric: Denies anxiety, Denies behavioral changes, Denies confusion, Denies depression, Denies homicidal ideation and Denies suicidal ideation Endocrine Endocrine: Denies fatigue, Denies flushing and Denies palpitations Hematologic/Lymphatic Hematologic/Lymphatic: Denies easy bruising Allergic/Immunologic Allergic/Immunologic: Denies urticaria, Denies throat swelling and Denies wheezing Patient History <Reji Lara PA-C - Last Filed: 11/23/21 20:13> Medical History Facet arthropathy, lumbar Herniated nucleus pulposus, L5-S1, left Social History Smoking Status: Never smoker Smoking Status: Never smoker alcohol intake frequency: a few times a month Substance Use Type: does not use Exam <Reji Lara PA-C - Last Filed: 11/23/21 20:13> Initial Vital Signs Initial Vital Signs: Vital Signs Temperature 97.9 F 11/23/21 14:51 Pulse Rate 83 11/23/21 14:51 Respiratory Rate 16 11/23/21 14:51 Blood Pressure 146/77 H 11/23/21 14:51 Pulse Oximetry 97 11/23/21 14:51 Const General: cooperative, healthy appearing and comfortable [facility] Head: normal to inspection Eyes General: appearance normal, both eyes and all related structures Neck Neck: normal visual inspection Chest Chest: normal inspection of the chest Resp Effort & Inspection: normal respiratory effort Auscultation: clear to auscultation bilaterally Cardio Rate: regular rate Rhythm: regular rhythm GI Other: Abdomen is soft, nontender, non distended. No CVA tenderness. General: No CVA tenderness Back/Spine/Pelvis Back: normal to inspection Other: No midline tenderness to palpation. Neuro General: patient alert, patient awake and patient oriented x3 Psych Appearance: grossly normal Mental Status: mental status grossly normal <Naga Andrea DO - Last Filed: 11/23/21 20:15> Initial Vital Signs Initial Vital Signs: Vital Signs Temperature 97.9 F 11/23/21 14:51 Pulse Rate 83 11/23/21 14:51 Respiratory Rate 16 11/23/21 14:51 Blood Pressure 146/77 H 11/23/21 14:51 Pulse Oximetry 97 11/23/21 14:51 Course <Reji Lara PA-C - Last Filed: 11/23/21 20:13> Orders Ordered: ED Orders 11/23/21 15:00 Urinalysis and Microscopic Stat 11/23/21 18:27 CT kidney ureter bladder (KUB) Stat 11/23/21 19:10 Complete Blood Count AUTO DIFF Stat Comprehensive Metabolic Panel Stat Lipase Stat Vital Signs Vital signs: Vital Signs - 8 hr 11/23/21 14:51 11/23/21 20:12 Temperature 97.9 F Pulse Rate 83 72 Respiratory Rate 16 16 Blood Pressure 146/77 H 134/70 Pulse Oximetry 97 98 <Naga Andrea DO - Last Filed: 11/23/21 20:15> Orders Ordered: ED Orders 11/23/21 15:00 Urinalysis and Microscopic Stat 11/23/21 18:27 CT kidney ureter bladder (KUB) Stat 11/23/21 19:10 Complete Blood Count AUTO DIFF Stat Comprehensive Metabolic Panel Stat Lipase Stat Vital Signs Vital signs: Vital Signs - 8 hr 11/23/21 14:51 11/23/21 20:12 Temperature 97.9 F Pulse Rate 83 72 Respiratory Rate 16 16 Blood Pressure 146/77 H 134/70 Pulse Oximetry 97 98 Medical Decision Making <DENNISE Awad Last Filed: 11/23/21 20:13> Lab Data Lab results narrative: Labs within normal limits. Result diagrams: 11/23/21 19:10 11/23/21 19:10 Labs: Lab Results 03/04/0911/23/21 11/23/21 Range/Units 15:00 19:10 19:10 WBC 6.8 (4.5-11.0) X10^3/uL RBC 5.00 (4.5-5.9) X10^6/uL Hgb 15.1 (13.5-17.5) g/dL Hct 43.9 (41-53) % MCV 87.9 (80-100) fL MCH 30.2 (26-34) PG MCHC 34.4 (30-36) % RDW 13.1 (11.6-14.8) % Plt Count 256 (150-400) X10^3/uL Neut % (Auto) 54.5 (50-75) % Lymph % (Auto) 34.0 (25-40) % [place] % (Auto) 8.8 (3-14) % Eos % (Auto) 2.0 (2-4) % Baso % (Auto) 0.7 (0-2) % Neut # (Auto) 3700 (1418-2913) /uL Lymph # (Auto) 2300 (6200-6347) /uL [place] # (Auto) 600 (0-900) /uL Eos # (Auto) 100 (0-450) /uL Baso # (Auto) 100 (0-100) /uL Sodium 137 (137-145) mmol/L Potassium 4.6 (3.4-5.1) mmol/L Chloride 102 (98-107) mmol/L Carbon Dioxide 29 (22-32) mmol/L BUN 19 (9-20) mg/dL Creatinine 1.14 (0.66-1.25) mg/dL Estimated GFR > 60.0 (>60) mL/min BUN/Creatinine Ratio 16.7 (6-22) Glucose 102 H (70-100) mg/dL Calcium 9.6 (8.4-10.2) mg/dL Total Bilirubin 0.6 (0.2-1.3) mg/dL AST 41 (17-59) IU/L ALT 46 (<50) IU/L Alkaline Phosphatase 58 (38-126) U/L Total Protein 8.5 H (6.3-8.2) g/dL Albumin 4.9 (3.5-5.0) g/dL Globulin 3.6 (1.7-4.1) g/dL Albumin/Globulin Ratio 1.4 (1.0-2.8) Lipase 95 (23-300) U/L Urine Color Yellow Urine Appearance Clear Urine pH 8.0 (4.5-8.0) Ur Specific [place] 1.010 (1.000-1.035) Urine Protein Negative (Negative) Urine Glucose (UA) Negative (Negative) g/dL Urine Ketones Negative (NEGATIVE) Urine Occult Blood Negative (Negative) Urine Nitrate Negative (Negative) Urine Bilirubin Negative (NEGATIVE) Urine Urobilinogen 0.2 (0.2) E.U./dL Ur Leukocyte Esterase Negative (NEGATIVE) Urine RBC None seen (0-5/HPF) Urine WBC 0-1/hpf (0-5/HPF) Ur Squamous Epith Cells 0-1 /hpf (0-5/HPF) Urine Bacteria None seen (None) Ur Culture Indicated? Cult not indicated Imaging Data CT scan - abdomen/pelvis: Radiologist's Impression: PROCEDURE:? CT KIDNEY URETER BLADDER (KUB) ? INDICATIONS:? R flank pain eval for stone ? TECHNIQUE:? Axial sections were acquired from the lung bases to the pubic symphysis.? Coronal and sagittal reformats were performed.? For radiation dose reduction, the following was used: ?automated exposure control, adjustment of mA and/or kV according to patient size.? ? COMPARISON:? None. ? FINDINGS:? Unenhanced kidneys are unremarkable.? No renal calculus, hydroureter, hydronephrosis, or perinephric fat stranding.? Urinary bladder is unremarkable. ? Included portions of the lung bases are clear.? Enteric tract is normal with no evidence of obstruction or other acute enteric process.? Unenhanced solid abdominal visceral structures are within normal limits.? No lymphadenopathy in the abdomen or p ashwin.? No acute osseous abnormality. ? IMPRESSION:? ? Normal study. ? ? ? Dictated by: Angel Alonso M.D. on 11/23/2021 at 18:49 ? ? Approved by: Angel Alonso M.D. on 11/23/2021 at 18:51 ? MDM Narrative Medical decision making narrative: 41-year-old male with past medical history herniated disc in L5-S1 presents to the ED with bilateral lower rib pain. Concern for intra-abdominal pathology versus UTI versus pyelonephritis versus musculoskeletal strain/sprain. Will order labs, UA, CT abdomen pelvis. Workup without acute findings. Patient's symptoms likely due to musculoskeletal sprain/strain. Patient to follow-up with PCP for PT referral. ED return precautions discussed with patient. Patient verbalized understanding. <Naga Andrea, DO - Last Filed: 11/23/21 20:15> Lab Data Labs: Lab Results 11/23/21 11/23/21 11/23/21 Range/Units 15:00 19:10 19:10 WBC 6.8 (4.5-11.0) X10^3/uL RBC 5.00 (4.5-5.9) X10^6/uL Hgb 15.1 (13.5-17.5) g/dL Hct 43.9 (41-53) % MCV 87.9 (80-100) fL MCH 30.2 (26-34) PG MCHC 34.4 (30-36) % RDW 13.1 (11.6-14.8) % Plt Count 256 (150-400) X10^3/uL Neut % (Auto) 54.5 (50-75) % Lymph % (Auto) 34.0 (25-40) % [place] % (Auto) 8.8 (3-14) % Eos % (Auto) 2.0 (2-4) % Baso % (Auto) 0.7 (0-2) % Neut # (Auto) 3700 (1151-2751) /uL Lymph # (Auto) 2300 (5192-2052) /uL [place] # (Auto) 600 (0-900) /uL Eos # (Auto) 100 (0-450) /uL Baso # (Auto) 100 (0-100) /uL Sodium 137 (137-145) mmol/L Potassium 4.6 (3.4-5.1) mmol/L Chloride 102 (98-107) mmol/L Carbon Dioxide 29 (22-32) mmol/L BUN 19 (9-20) mg/dL Creatinine 1.14 (0.66-1.25) mg/dL Estimated GFR > 60.0 (>60) mL/min BUN/Creatinine Ratio 16.7 (6-22) Glucose 102 H (70-100) mg/dL Calcium 9.6 (8.4-10.2) mg/dL Total Bilirubin 0.6 (0.2-1.3) mg/dL AST 41 (17-59) IU/L ALT 46 (<50) IU/L Alkaline Phosphatase 58 (38-126) U/L Total Protein 8.5 H (6.3-8.2) g/dL Albumin 4.9 (3.5-5.0) g/dL Globulin 3.6 (1.7-4.1) g/dL Albumin/Globulin Ratio 1.4 (1.0-2.8) Lipase 95 (23-300) U/L Urine Color Yellow Urine Appearance Clear Urine pH 8.0 (4.5-8.0) Ur Specific [place] 1.010 (1.000-1.035) Urine Protein Negative (Negative) Urine Glucose (UA) Negative (Negative) g/dL Urine Ketones Negative (NEGATIVE) Urine Occult Blood Negative (Negative) Urine Nitrate Negative (Negative) Urine Bilirubin Negative (NEGATIVE) Urine Urobilinogen 0.2 (0.2) E.U./dL Ur Leukocyte Esterase Negative (NEGATIVE) Urine RBC None seen (0-5/HPF) Urine WBC 0-1/hpf (0-5/HPF) Ur Squamous Epith Cells 0-1 /hpf (0-5/HPF) Urine Bacteria None seen (None) Ur Culture Indicated? Cult not indicated Discharge Plan Departure Patient Disposition: Home Clinical Impression: Rib pain Instructions: DI for Low Back Pain Activity Restrictions/Additional Instructions: You were evaluated in the ED today for rib pain and back pain. Your labs, urinalysis, CT abdomen pelvis were normal. Your symptoms are likely due to a musculoskeletal sprain/strain. You may take Tylenol, ibuprofen for your symptoms. You may use Salonpas patches for pain relief. Please follow-up with your PCP as soon as possible for a physical therapy referral. Return to the ED if your pain worsens, you experience numbness, tingling, weakness, fever, chills. Prescriptions: No Action celecoxib [Celebrex] 200 mg capsule 200 mg PO DAILY Qty: 30 2RF diazepam [Valium] 10 mg tablet 10 mg PO ONCE MDD 3 tabs Qty: 10 0RF ibuprofen [Advil] 200 mg tablet 200 mg PO Q6H PRN0RF Hold Instructions: Home Medication placed on hold at Doctor's office lisinopril 40 mg tablet 40 mg PO DAILY 0RF Referrals: Naga Starr [Primary Care Provider] - <Naga Andrea DO - Last Filed: 11/23/21 20:15> Cosign ED Attending Cosignature Attestation: Dr Andrea Co-Sign Statement: I was available for consultation during this p atient's emergency department visit. This chart is signed by myself for administrative purposes only. I did not have direct contact with this patient during this visit. They were seen independently by the APC.
[2021-11-23 20:12] VITALS: BP 134/70; PULSE 72; RESP 16; O2SAT 98
== END 2021-11-23 20:15 | disposition home or self-care (01) ==
PROVIDERS: Emergency Medicine; Emergency Provider Student in an Organized Health Care Education/Training Program; PCP Student in an Organized Health Care Education/Training Program
DX: R07.81 Pleurodynia (principal)
CPT/HCPCS: 74176; 80053; 81001; 83690; 85025; 99281; 99284

== ENCOUNTER 2022-01-13 16:41 | Emergency (ER) | payer OTHER, SELFPAY ==
[2022-01-13 17:11] VITALS: BP 137/82; PULSE 87; RESP 18; TEMP 36.7; O2SAT 95; BMI 30.2
[2022-01-13 19:54] VITALS: BP 166/98; PULSE 81; RESP 20; O2SAT 97
[2022-01-13] MEDS: LIDOCAINE PATCH 1 EACH ADH..PATCH 2 EACH TOP (20:05)
[2022-01-13] MEDS: predniSONE 20 MG TABLET 40 MG PO (20:05)
[2022-01-13] MEDS: KETOROLAC 30 MG/ML VIAL 15 MG IM (20:06)
--- NOTE | 2022-01-13 20:08 | ED.BACK ---
HPI - Back Pain/Injury <VIDAL Moise - Last Filed: 01/13/22 20:18> General Chief Complaint: Back Pain/Injury Stated Complaint: back pain Time Seen by Provider: 01/13/22 17:28 Source: patient History of Present Illness HPI Narrative: This is a pleasant 41-year-old male who presents to the emergency department complaining of low back pain with bilateral sciatica which has been getting worse over the last 2 weeks. He states that he has had steroid injections from Dr. Bustamante in the past for this, denies any recent flare of this area. Patient states that he has had rib pain in October of this year his pain is in his sacrum and lower lumbar spine. Patient denies any incontinence, weakness, sensation changes bilaterally except for his bilateral sciatica. He states that his pain is central at his sacrum and radiates down both of his hips down his legs. Patient states that he has been taking ibuprofen for this at home, using heat, and trying to rest this over the last 2 weeks and it is not getting any better. He states that he has a follow-up appointment for injections with Dr. Bustamante on January 18, 2022. Patient states that his muscle spasms are intense and frequent, and any movement will trigger them. Related Data Home Medications Medication Instructions Recorded Confirmed ibuprofen 200 mg tablet (Advil) 200 mg PO Q6H PRN 09/30/21 09/30/21 lisinopril 40 mg tablet 40 mg PO DAILY 09/30/21 09/30/21 Previous Rx's Medication Instructions Recorded celecoxib 200 mg capsule (Celebrex) 200 mg PO DAILY #30 cap 09/30/21 diazepam 10 mg tablet (Valium) 10 mg PO ONCE #10 tab MDD 3 tabs 10/27/21 lidocaine 5 % topical patch 2 patch TOPICAL DAILY PRN #15 ea 01/13/22 (Lidoderm) methocarbamol 500 mg tablet 500 mg PO TID PRN #20 tab 01/13/22 naproxen 250 mg tablet 250 mg PO BID PRN #20 tab 01/13/22 prednisone 50 mg tablet 50 mg PO DAILY #5 tab 01/13/22 Allergies Allergy/AdvReac Type Severity Reaction Status Date / Time No Known Drug Allergies Allergy Verified 01/13/22 17:17 Review of Systems <VIDAL Moise - Last Filed: 01/13/22 20:18> Review of Systems Narrative: General: denies fever, chills, malaise, sweats, fatigue Head/Neck: denies headache, neck pain, dizziness Eyes: denies visual changes, eye pain Cardio: denies chest pain, palpitations, edema Respiratory: denies dyspnea, cough, orthopnea GI: denies abdominal pain, nausea, vomiting, or diarrhea : denies dysuria, hematuria, urinary retention, frequency or incontinence MSK: denies joint pain, muscle weakness, endorses low back pain with bilateral sciatica Skin: denies rash, itching, skin lesions or other Neuro: denies numbness, tingling Patient History <VIDAL Moise - Last Filed: 01/13/22 20:18> Medical History Facet arthropathy, lumbar Herniated nucleus pulposus, L5-S1, left Social History Smoking Status: Never smoker Smoking Status: Never smoker alcohol intake frequency: a few times a month Substance Use Type: does not use Exam <VIDAL Moise - Last Filed: 01/13/22 20:18> Narrative Exam Narrative: Independently reviewed vitals signs and nursing notes. General: cooperative, comfortable, in no acute distress, well developed and well groomed Head: atraumatic, symmetrical facial expressions Neck: supple, atraumatic, without lymphadenopathy. Eyes: pupils equal round and reactive, EOMI, conjunctiva normal Nose: nares patent Mouth/Throat: moist mucus membranes Cardiovascular: regular rate and rhythm, no peripheral edema, warm extremities Respiratory: normal effort, able to speak in complete sentences, no audible wheezing, stridor, or rales. No retractions or tachypnea. MSK: moves all extremities, ambulatory w/steady gait, neurovascularly intact, no weakness, no point tenderness along spine, muscle tension is present bilaterally the paraspinal region along his lumbar spine. Skin: brisk capillary refill, no rash, no erythema Neuro: normal speech and cognition, A&O x3, normal tone Psych: mental status is grossly normal, congruent mood, normal affect, pleasant and cooperative Initial Vital Signs Initial Vital Signs: Vital Signs Temperature 98.0 F 01/13/22 17:11 Pulse Rate 87 01/13/22 17:11 Respiratory Rate 18 01/13/22 17:11 Blood Pressure 137/82 01/13/22 17:11 Pulse Oximetry 95 01/13/22 17:11 <Stacey Armas DO - Last Filed: 01/14/22 02:51> Initial Vital Signs Initial Vital Signs: Vital Signs Temperature 98.0 F 01/13/22 17:11 Pulse Rate 87 01/13/22 17:11 Respiratory Rate 18 01/13/22 17:11 Blood Pressure 137/82 01/13/22 17:11 Pulse Oximetry 95 01/13/22 17:11 Course <VIDAL Moise - Last Filed: 01/13/22 20:18> Orders Ordered: Discontinued Medications Hydrocodone Bitart/Acetaminophen (Hydrocodone/Acet 5/325 Prepack) 1 bottle MISC SEEINSTR ONE Stop: 01/13/22 19:59 Last Admin: 01/13/22 20:13 Dose: 1 bottle Documented by: ALCON Cyclobenzaprine HCl (Cyclobenzaprine 10 Mg Prepack) 1 bottle MISC SEEINSTR ONE Stop: 01/13/22 19:59 Last Admin: 01/13/22 20:13 Dose: 1 bottle Documented by: ALCON Ketorolac Tromethamine (Ketorolac 30 Mg/Ml Vial) 15 mg IM NOW ONE Stop: 01/13/22 19:59 Last Admin: 01/13/22 20:06 Dose: 15 mg Documented by: ALCON Lidocaine (Lidocaine Patch 1 Each Adh..Patch) 2 each TOP NOW ONE Stop: 01/13/22 19:59 Last Admin: 01/13/22 20:05 Dose: 2 each Documented by: ALCON Prednisone (Prednisone 20 Mg Tablet) 40 mg PO NOW ONE Stop: 01/13/22 19:59 Last Admin: 01/13/22 20:05 Dose: 40 mg Documented by: ALCON Vital Signs Vital signs: Vital Signs - 8 hr 01/13/22 19:54 Pulse Rate 81 Respiratory Rate 20 Blood Pressure 166/98 H Pulse Oximetry 97 <Stacey Armas DO - Last Filed: 01/14/22 02:51> Orders Ordered: Discontinued Medications Hydrocodone Bitart/Acetaminophen (Hydrocodone/Acet 5/325 Prepack) 1 bottle MISC SEEINSTR ONE Stop: 01/13/22 19:59 Last Admin: 01/13/22 20:13 Dose: 1 bottle Documented by: ALCON Cyclobenzaprine HCl (Cyclobenzaprine 10 Mg Prepack) 1 bottle MISC SEEINSTR ONE Stop: 01/13/22 19:59 Last Admin: 01/13/22 20:13 Dose: 1 bottle Documented by: ALCON Ketorolac Tromethamine (Ketorolac 30 Mg/Ml Vial) 15 mg IM NOW ONE Stop: 01/13/22 19:59 Last Admin: 01/13/22 20:06 Dose: 15 mg Documented by: ALCON Lidocaine (Lidocaine Patch 1 Each Adh..Patch) 2 each TOP NOW ONE Stop: 01/13/22 19:59 Last Admin: 01/13/22 20:05 Dose: 2 each Documented by: ALCON Prednisone (Prednisone 20 Mg Tablet) 40 mg PO NOW ONE Stop: 01/13/22 19:59 Last Admin: 01/13/22 20:05 Dose: 40 mg Documented by: ALCON Vital Signs Vital signs: Vital Signs - 8 hr 01/13/22 19:54 Pulse Rate 81 Respiratory Rate 20 Blood Pressure 166/98 H Pulse Oximetry 97 [facility] - Back Pain/Injury <VIDAL Moise - Last Filed: 01/13/22 20:18> MDM Narrative Medical decision making narrative: A the a 41-year-old male with a history of low back pain with sciatica who presents to the emergency department today for exacerbation of this previous lumbar injury. Patient has had lumbar injections from Dr. Bustamante of steroids for this in the past. He has a follow-up appointment scheduled with Dr. Bustamante on January 18. Patient denies any weakness, incontinence, sensation changes other than his sciatica and denies any new trauma. No indications for lumbar spine x-ray at this time, there was a previous lumbar MRI from 2020. patient was given prednisone today for pain which he states is more severe than it ever has been, muscle relaxers, Toradol in the emergency department, and instructed to stay hydrated, rest, use heat, eat food while he is taking his medications, and follow-up with Dr. Bustamante and his primary care provider about this. I encouraged him to get a referral for physical therapy as well so that he can get back into it and combine that with his medications for prevention of exacerbation and improve strength and mobility. Multiple etiologies of back pain considered including; Epidural abscess, cauda equina, mass occupying lesion, lumbar fracture, intra-abdominal pathology chronic neuropathic pain and other considered. Patient was given strict return precautions for any worsening of this pain, incontinence, weakness, or difficulty ambulating. Patient is appropriate and amenable to discharge home. Vital signs are stable on repeat examination is unremarkable. Patient has been informed of results. Patient has been given strict return to ER precautions for any new or worsening symptoms. Patient understands to follow up closely with outpatient providers as instructed. Patient understands plan and agrees to discharge home. All questions and concerns answered at this time. Discharge Plan Departure Patient Disposition: Home Clinical Impression: Strain of lumbar region Qualifiers: Encounter type: initial encounter Qualified Code(s): S39.012A - Strain of muscle, fascia and tendon of lower back, initial encounter Sciatica Qualifiers: Laterality: bilateral Qualified Code(s): M54.31 - Sciatica, right side Instructions: DI for Sciatica, DI for Back Strain or Sprain Activity Restrictions/Additional Instructions: *You have been diagnosed with low back pain with bilateral sciatica. Please follow-up with Dr. Bustamante at your appointment on Tuesday about this. Please start physical therapy for this and get a referral from Dr. Starr or whoever can see you from medical. Please take food while you are taking anti-inflammatories and steroids. Please continue doing heat, lidocaine patches, rest, light activity, light stretching, gentle massage, and you should start to get better after a couple of days. You have been prescribed hydrocodone which will turn up on a UA. Please use this documentation as your paperwork showing that this was given to you today. Please use a stool softener while you are taking an opioid medications. Please return to the emergency department for any worsening of your pain, incontinence, weakness or sensation changes in your legs. CONTROLLED SUBSTANCE DISCHARGE (Narcotic/benzodiazepine/Flexeril/Phenergan) 1. You have been prescribed narcotic medications, it does have acetaminophen/Tylenol/paracetamol in it, DO NOT TAKE MORE THAN 4,00mg in 24 hours of Tylenol. *Tramadol does not contain tylenol. 2. Please understand that we cannot provide further refills of narcotics, benzodiazepines or controlled substances through the ED and her pain management will need to be through your provider. 3. While on these medications you cannot drive or operate heavy machinery. 4. You cannot sign legal documents or perform any duties such as this. 5. As long as you are taking opiate pain medications he should also be taking a stool softener such as Colace, Dulcolax, MiraLAX or prune juice, to help avoid constipation. *What to do: *Please continue to take your regular medications as directed. [x ] New medication prescriptions sent to your pharmacy: [ [facility]] [ ] New medication written as a paper prescription [ ] No new medications given *Please follow up with your primary care provider in 2-3 days, call for an appointment. Let them know you were seen in the Emergency Department and that we asked that you be seen for follow-up. We will electronically transmit a record of today's note if your PCP is in our system *If you do not have a primary care provider please contact [phone] to establish care with one of [facility] primary care providers. *Return to Emergency Department if you should have any new, worsening or concerning symptoms, such as [fever greater than 101F, chills, worsening pain, persistent vomiting or other bothersome symptoms] Prescriptions: New lidocaine [Lidoderm] 5 % adhesive patch,medicated 2 patch topical DAILY PRN (Reason: back pain) Qty: 15 0RF Rx Instructions: leave on most painful area for up to 12 hrs prednisone 50 mg tablet 50 mg PO DAILY Qty: 5 0RF methocarbamol 500 mg tablet 500 mg PO TID PRN (Reason: muscle spasm) Qty: 20 0RF naproxen 250 mg tablet 250 mg PO BID PRN (Reason: pain) Qty: 20 0RF No Action celecoxib [Celebrex] 200 mg capsule 200 mg PO DAILY Qty: 30 2RF diazepam [Valium] 10 mg tablet 10 mg PO ONCE MDD 3 tabs Qty: 10 0RF ibuprofen [Advil] 200 mg tablet 200 mg PO Q6H PRN0RF Hold Instructions: Home Medication placed on hold at Doctor's office lisinopril 40 mg tablet 40 mg PO DAILY 0RF Referrals: Jon Bustamante DO [Physician] - Naga Starr [Primary Care Provider] - <Stacey Armas DO - Last Filed: 01/14/22 02:51> Cosign ED Attending Cosignature Attestation: I was immediately available in the department for consultation. Documentation has been reviewed. I agree with assessment and plan.
[2022-01-13] MEDS: CYCLOBENZAPRINE 10 MG PREPACK 1 BOTTLE MISC (20:13)
[2022-01-13] MEDS: HYDROCODONE/ACET 5/325 PREPACK 1 BOTTLE MISC (20:13)
== END 2022-01-13 20:21 | disposition home or self-care (01) ==
PROVIDERS: Emergency Provider Nurse Practitioner Critical Care Medicine; PCP Student in an Organized Health Care Education/Training Program
DX: S39.012A Strain of muscle, fascia and tendon of lower back, initial encounter (principal); M54.32 Sciatica, left side; M54.31 Sciatica, right side; X58.XXXA Exposure to other specified factors, initial encounter
CPT/HCPCS: 96372; 99283; J1885